=== PATIENT | male | born 1955 | race Caucasian/White ===

== ENCOUNTER 2023-01-17 13:26 | Outpatient (CLI) | payer BC | END 2023-01-17 13:27 | disposition home or self-care (01) | LOC: CSHCT 13:26 | PROVIDERS: ATTEND Urology | DX: N40.1 Benign prostatic hyperplasia with lower urinary tract symptoms (principal); M10.9 Gout, unspecified; N20.0 Calculus of kidney; R36.1 Hematospermia; N39.41 Urge incontinence; N28.1 Cyst of kidney, acquired; K76.9 Liver disease, unspecified; K57.30 Diverticulosis of large intestine without perforation or abscess without bleeding | CPT/HCPCS: 74176 ==